=== PATIENT | female | born 1985 | race Caucasian/White ===

== ENCOUNTER 2016-11-12 21:11 | Inpatient (IN) ==
[2016-11-12 21:40] LABS: URINE SOURCE VOIDED
[2016-11-12 21:59] LABS: BILIRUBIN URINE NEGATIVE (NEGATIVE); BLOOD URINE NEGATIVE (NEGATIVE); GLUCOSE URINE NEGATIVE (NEGATIVE); LEUKOCYTES URINE TRACE (NEGATIVE); NITRITE URINE NEGATIVE (NEGATIVE); PROTEIN URINE NEGATIVE (NEGATIVE); SP GRAVITY URINE 1.015; UROBILINOGEN URINE NORMAL
[2016-11-12 22:00] LABS: CLARITY CLEAR (CLEAR); COLOR YELLOW
[2016-11-12 22:34] LABS: UR AMPHETAMINES QUAL NONE DETECTED (NONE DETECT); UR BARBITUATES QUAL NONE DETECTED (NONE DETECT); UR BENZODIAZEPIN QUAL PRESUMPTIVE POSITIVE (NONE DETECT); UR CANNABINOIDS QUAL NONE DETECTED (NONE DETECT); UR COCAINE QUAL NONE DETECTED (NONE DETECT); UR MDMA QUAL NONE DETECTED (NONE DETECT); UR METHADONE QUAL NONE DETECTED (NONE DETECT); UR METHAMPHETAMINE QUAL NONE DETECTED (NONE DETECT); UR OPIATES QUAL PRESUMPTIVE POSITIVE (NONE DETECT); UR OXYCODONE QUAL NONE DETECTED (NONE DETECT); UR PCP QUAL NONE DETECTED (NONE DETECT); UR TCA QUAL NONE DETECTED (NONE DETECT)
[2016-11-12] MEDS ORDERED: STADOL IV PRN ×3 (23:40)
[2016-11-12] MEDS ORDERED: TYLENOL PO PRN (23:40)
[2016-11-12] MEDS ORDERED: ZOFRAN IV PRN (23:40)
[2016-11-12] MEDS ORDERED: KEFZOL 1 GM/D5W 1 GM/50 ML IVPB IV PRN (23:40)
[2016-11-12] MEDS ORDERED: AMBIEN PO PRN (23:40)
[2016-11-12] MEDS ORDERED: PEPCID IV PRN (23:40)
[2016-11-12] MEDS ORDERED: PITOCIN 30 UNITS/LR 30 UNITS/500 ML IV.SOLN IV SCH (23:40)
[2016-11-12] MEDS ORDERED: BRETHINE SUBQ PRN (23:40)
[2016-11-13] MEDS: LR 1,000 ML IV SCH ×4 (00:25→11:21)
[2016-11-13] MEDS ORDERED: AMPICILLIN 2 GM/NS 2 GM/100 ML IVPB IV ONE (00:30)
[2016-11-13] MEDS ORDERED: CYTOTEC PO ONE (00:30)
[2016-11-13 01:39] LABS: MANUAL DIFF NEEDED? NO
[2016-11-13 01:48] LABS: BASO% 0.3 % (0.0-0.8); EOS# 0.13 X1000 (0.0-0.7); EOS% 0.7 % (0.0-10.0); HEMATOCRIT 36.7 % (37.0-47.0); HEMOGLOBIN 12.6 g/dL (12.0-16.0); IMM GRAN# 0.27 X1000 (0.0-0.04); IMM GRAN% 1.5 % (0.0-0.5); LYMPH# 5.17 X1000 (1.2-3.4); LYMPH% 27.8 % (20.5-51.1); MCH 29.6 PG (27-31); MCHC 34.3 g/dL (33-37); MCV 86.2 FL (81-99); MONO# 1.45 X1000 (0.11-0.59); MONO% 7.8 % (1.7-9.3); MPV 11.1 FL (7.4-10.4); NEUT% 61.9 % (42.2-75.2); PLT 431 X1000 (130-400); RBC 4.26 XMIL (4.2-5.4)
[2016-11-13 04:28] VITALS: BP 103/57
[2016-11-13] MEDS ORDERED: CYTOTEC PO SCH (04:30)
[2016-11-13] MEDS: AMPICILLIN 1 GM/NS 1 GM/50 ML IVPB IV SCH ×3 (04:40→12:24)
[2016-11-13 06:00] LABS: RAPID HIV PRESUMPTIVE NEGATIVE
[2016-11-13] MEDS ORDERED: CELESTONE SOLUSPAN IM ONE (08:51)
[2016-11-13] MEDS ORDERED: MAGNESIUM SULFATE 4 GM/S.W.I. 4 GM/100 ML IVPB IV ONE (08:57)
[2016-11-13] MEDS ORDERED: MAGNESIUM SULFATE 40 GM/S.W.I. 40 GM/1,000 ML IV.SOLN IV SCH (09:00)
--- NOTE | 2016-11-13 09:50 | HISTORY AND PHYSICAL ---
DIAGNOSIS: Spontaneous rupture of membranes. SUMMARY: Concepcion Fisher is a 31-year-old who states she is 2, para 0--0-1-0 when she presented to labor and delivery, reporting spontaneous rupture of membranes at 8 p.m. yesterday. She stated she had care with Dr. Alarcon and that she was 35 weeks gestation. ROM Plus test was performed twice that showed rupture of membranes. Based on that information, that she was 35 weeks, Cytotec was given as her cervix was closed. As the three dimensional map modeler hours went on, the patient's extensive psychiatric history and polydrug use history became more pronounced. This morning when I came in, her story changed. She says she was 35 weeks and then 34 weeks based on a [facility] ultrasound and that she had never seen Dr. Alarcon or any other metal off bearer during the and has had no care. I can document 1 office visit when she saw our nurse practitioner in August. No ultrasound was performed at that time. I have performed an ultrasound at the bedside and by femur length, she would be 33 weeks. I have called the certified medical technician assistant to come in for a more formal ultrasound report. In the meantime, we are treating her as a 33 week rupture of membranes instead of a 35 week rupture of membranes. PAST MEDICAL HISTORY: Again is unreliable due to the patient's psychiatric history. However, she does report polydrug abuse. She reports no chronic medical or surgical illnesses other than her psychiatric issues. She states that she is currently taking narcotics and benzodiazepines. Her drug screen was positive for benzodiazepines and opiates. Her RPR is nonreactive. HIV is negative. Rubella is pending. Blood type is O positive. PHYSICAL EXAMINATION: PELVIC: She is having contractions. Her cervix is fingertip, 90% to 85% effaced. There is a vertex presentation. I can feel a forebag. CARDIAC: Examination normal. PULMONARY: Examination normal. ABDOMEN: Gravid and she is felicitas. EXTREMITIES: No clubbing, edema, or cyanosis. IMPRESSION: Spontaneous rupture membranes of unknown gestational age. PLAN: I am going to give her betamethasone now. She is on ampicillin. I am going to get a formal ultrasound. Unless there is ultrasound evidence that she is 34 weeks or more, we will try to tocolysis labor until I can get 2 doses of steroids on board. cc: Kodak Paiz MD
[2016-11-13] MEDS ORDERED: DEMEROL IV ONE ×3 (10:05→13:30)
[2016-11-13] MEDS ORDERED: PHENERGAN IV ONE (10:06)
[2016-11-13] MEDS ORDERED: SODIUM CHLORIDE 0.9% INJ ONE (10:06)
--- NOTE | 2016-11-13 10:41 | Diag Imaging Result Doc PS360 ---
EXAM: US OBS COMPLETE > 14 WKS - 11/13/2016 HISTORY: NPC TECHNIQUE: Obstetric ultrasound limited COMPARISON: None. FINDINGS: There is a live intrauterine in cephalic presentation. The estimated gestational age based on parameters is 33 weeks four days +/- 17 days. The heart rate is 131 bpm. The estimated weight is 2192 g +/- 329 g (4 lbs. 13 oz. +/- 12 ounces). The placenta is anteriorly located and is unremarkable. The amniotic fluid index measures 21.88 cm. The cervix appears closed. There are no complications identified. IMPRESSION: Live intrauterine of 33 weeks four days +/- 17 days estimated gestational age. Presentation is cephalic. The heart rate is 131 bpm. The amniotic fluid index measures 21.88 cm. There are no complications identified. Electronically signed by Anibal Hale 11/13/2016 10:38 AM
[2016-11-13] MEDS ORDERED: XANAX PO ONE (12:09)
[2016-11-13] MEDS ORDERED: DEMEROL IV PRN (13:48)
[2016-11-13 16:20] LABS: RUBELLA SCREEN IMMUNE (IMMUNE)
--- NOTE | 2016-11-14 03:29 | DISCHARGE SUMMARY ---
ADMISSION DATE: 11/12/2016 DISCHARGE DATE: 11/13/2016 DIAGNOSES: 1. rupture of membranes. 2. Drug addiction. SUMMARY: Please see admission H and P. Ms. Fisher initially came in stating she was 35 weeks by an ultrasound at [facility] antiabortion clinic. Based on that criteria, we began induction of labor for her rupture of membranes. However, her extensive psychiatric history became more apparent along with her polydrug abuse. She continued to change her story and what she was told at [facility] as far as due date. We did an ultrasound which showed 33 weeks and 07/15 day plus or minus 17 days as the gestational age. Based on that criteria, we did not continue Cytotec. She received only 1 dose of oral Cytotec. We, at that point, began tocolysis with magnesium sulfate 4 g load and then 2 g an hour. IV antibiotics were started. She was given a dose of betamethasone. She has been screaming in pain and anxiety. In spite of 125 mg of IV Demerol, she continues to scream in pain. I had a great concern that she was withdrawing from benzodiazepines and after discussing with our distribution clerk, Dr. Sanabria, I gave her 2 mg of p.o. Xanax. She continues to scream. Her cervix is unchanged. I have discussed her case with both Dr. Cavanaugh and Dr. Tavarez at [facility]. Dr. Tavarez is our maternal/ medicine specialist and he recommends transfer and Dr. Cavanaugh agrees. We, therefore, are having her transferred to [facility] for further care. cc: Kodak Paiz MD [facility]OSPITALHarish
--- NOTE | 2016-11-14 04:08 | DISCHARGE SUMMARY ---
ADMISSION DATE: 11/12/2016 DISCHARGE DATE: ADDENDUM REPORT Make this high priority. cc: Kodak Paiz MD
[2016-11-15 09:56] LABS: HIV ANTIBODY SCREEN SEE COMMENTS
[2016-11-15 11:48] LABS: HEPATITIS B SURFACE ANTIGEN SEE COMMENTS
== END 2016-11-13 15:00 | disposition short-term general hospital (02) ==
LOC: OPLD 21:11 → P.LD 21:14
PROVIDERS: ADMIT Obstetrics & Gynecology; ATTEND Obstetrics & Gynecology